=== PATIENT | female | born 1960 | race Caucasian/White ===

== ENCOUNTER → 2016-07-11 | Outpatient (CLI) | payer SELFPAY ==
--- NOTE | 2016-07-11 14:37 | RAD ---
EXAM DESCRIPTION: Hand,Left 3 Views CLINICAL HISTORY: PAIN IN LEFT HAND COMPARISON: Views of the opposite right hand TECHNIQUE: AP, LATERAL, AND OBLIQUE FINDINGS: Three-view left hand shows no fracture or dislocation. Moderately advanced degenerative changes at the base of the thumb at the carpal metacarpal articulation is present. No fracture or dislocation at the wrist is seen and no evidence of osteonecrosis of the lunate or scaphoid is noted. No radiopaque foreign body is seen. Typical findings of a destructive arthropathy is not apparent. IMPRESSION: 1. Degenerative changes, most significant at the base of the thumb at the carpal metacarpal articulation Electronically signed by: Bran Johnson MD 07/11/2016 2:37 PM CDT
--- NOTE | 2016-07-11 14:39 | RAD ---
EXAM DESCRIPTION: Hand,Right 3 Views CLINICAL HISTORY: PAIN IN RIGHT HAND COMPARISON: Concurrent left hand examination TECHNIQUE: AP, LATERAL, AND OBLIQUE FINDINGS: Three-view right hand shows no fracture or dislocation. Advanced degenerative changes at the base of the thumb at the carpal metacarpal articulation is present with very little degenerative disease elsewhere. The wrist appears intact without evidence of lunate or scaphoid osteonecrosis or dislocation. A destructive arthritis is not apparent. No radiopaque foreign body is noted. IMPRESSION: 1. Localized degenerative disease most prominently at the base of the thumb at the carpal metacarpal articulation. Electronically signed by: Bran Johnson MD 07/11/2016 2:39 PM CDT
== END | disposition home or self-care (01) ==
LOC: RAD 08:33
PROVIDERS: ATTEND Orthopaedic Surgery
DX: M79.642 Pain in left hand (principal)

== ENCOUNTER → 2018-01-20 | Outpatient (CLI) | payer BC | LOC: GMAHI 17:28 | PROVIDERS: ATTEND Nurse Practitioner Family | DX: N95.8 Other specified menopausal and perimenopausal disorders (principal) ==

== ENCOUNTER → 2018-01-26 | Outpatient (CLI) | payer BC | LOC: GMAM 17:02 | PROVIDERS: ATTEND Family Medicine | DX: R94.5 Abnormal results of liver function studies (principal) ==

== ENCOUNTER → 2018-03-04 | Outpatient (CLI) | payer BC ==
--- NOTE | 2018-03-05 09:01 | US ---
EXAM DESCRIPTION: Thyroid CLINICAL HISTORY: 57 years Female, evaluate for nodules COMPARISON: None. TECHNIQUE: Multiple transverse and longitudinal sonographic images of the thyroid gland were obtained. FINDINGS: The right thyroid lobe measures 4.2 x 1.6 x 1.5 cm and demonstrates a heterogenous appearance. No discrete nodules are noted. The left thyroid lobe measures 5.2 x 1.7 x 1.6 cm and demonstrates a 1.7 x 1.4 x 1.9 cm solid nodule with minimal internal vascularity in the lower portion. 0.7 x 0.7 x 1.9 cm solid nodule is noted in the midportion. The isthmus measures 3 mm in thickness. IMPRESSION: 2 nodules are identified in the mid and lower portions of the left thyroid lobe. The largest of these nodules measures 1.7 x 1.4 x 1.9 cm and is located in the lower portion of the left thyroid lobe. Electronically signed by: Debora Chadwick MD 03/05/2018 9:00 AM [employer]
== END ==
LOC: US 15:43
PROVIDERS: ATTEND Family Medicine
DX: E04.1 Nontoxic single thyroid nodule (principal)

== ENCOUNTER → 2018-08-26 | Outpatient (CLI) | payer BC | LOC: GMAM 10:09 | PROVIDERS: ATTEND Family Medicine | DX: E04.1 Nontoxic single thyroid nodule (principal) ==

== ENCOUNTER → 2018-08-28 | Outpatient (CLI) | payer BC ==
--- NOTE | 2018-08-28 08:53 | US ---
EXAM DESCRIPTION: Liver CLINICAL HISTORY: ELEVATED LFTs COMPARISON: Previous right upper quadrant sonogram January 15, 2013 TECHNIQUE: Right upper quadrant ultrasound FINDINGS: Pancreas: Visualized portions of the pancreas are unremarkable. Bowel gas obscures some areas. Aorta/inferior vena cava: No aortic aneurysm. Normal inferior vena cava. Liver: The liver is homogeneous in texture with increased echogenicity consistent with diffuse hepatic steatosis. Liver length of 17.6 cm is at the upper limits of normal. No focal liver lesion or intrahepatic bile duct dilatation. No liver surface irregularity. Normal appearance of the portal vein and hepatic veins. Gallbladder: Numerous shadowing stones in the gallbladder without gallbladder wall thickening or overdistention. Findings are consistent with cholelithiasis without acute cholecystitis. Sonographic Torres's sign was not reported. Common bile duct: Normal caliber measuring 6.0 mm. Right kidney: Renal length is 10.3 cm. Normal cortical echogenicity. Cortical thickness is normal. No hydronephrosis is seen. No renal mass or shadowing calculus. Previous study in January 2013 showed numerous stones in the gallbladder. The liver appeared hyperechoic at that time. IMPRESSION: Prominent liver with diffuse hepatic steatosis. Gallstones without other changes to suggest acute cholecystitis. Electronically signed by: Vitaly Pavon MD 08/28/2018 8:51 AM CDT
== END ==
LOC: US 08:07
PROVIDERS: ATTEND Family Medicine
DX: K76.0 Fatty (change of) liver, not elsewhere classified (principal); K80.20 Calculus of gallbladder without cholecystitis without obstruction

== ENCOUNTER → 2018-08-31 | Outpatient (CLI) | payer BC | LOC: GMAM 17:01 | PROVIDERS: ATTEND Family Medicine | DX: K76.0 Fatty (change of) liver, not elsewhere classified (principal) ==

== ENCOUNTER 2018-11-19 05:49 | Day surgery (SDC) | payer BC ==
[2018-11-19] MEDS ORDERED: LACTATED RINGERS 1,000 ML ONE (07:00)
[2018-11-19] MEDS ORDERED: LIDOCAINE 1% 10 ML VIAL INJ ONE (07:00)
[2018-11-19] MEDS ORDERED: KETOROLAC TROMETHAMINE INJ 30 MG/ML VIAL ONE (07:00)
[2018-11-19] MEDS ORDERED: ONDANSETRON INJ 4 MG/2 ML VIAL ONE ×2 (07:00→08:02)
[2018-11-19] MEDS ORDERED: PROPOFOL 200 MG/20 ML VIAL IV ONE (07:00)
[2018-11-19] MEDS ORDERED: DEXAMETHASONE INJ 10 MG/ML VIAL ONE (07:00)
[2018-11-19] MEDS ORDERED: SODIUM CHLORIDE 0.9% 100ML 100 ML IVPB ONE (07:00)
[2018-11-19] MEDS ORDERED: MIDAZOLAM INJ 2 MG/2 ML VIAL ONE (08:01)
[2018-11-19] MEDS ORDERED: fentaNYL CITRATE INJ 50 MCG/ML AMP ONE (08:01)
[2018-11-19] MEDS ORDERED: ROCURONIUM BROMIDE 10 MG/ML VIAL ONE (08:02)
[2018-11-19] MEDS ORDERED: SUGAMMADEX SODIUM 200 MG/2 ML VIAL IV ONE (08:03)
[2018-11-19] MEDS: ceFAZolin SODIUM 1 GM VIAL ONE (08:18)
[2018-11-19] MEDS: BUPIVACAINE 0.25% W/EPI 50 ML VIAL INJ ONE (08:42)
[2018-11-19] MEDS: HEPARIN SODIUM (PORCINE) 10,000 UNITS/ML VIAL ONE (09:00)
[2018-11-19] MEDS: LACTATED RINGERS 1,000 ML ONE (10:12)
[2018-11-19] MEDS: PROMETHAZINE HCL INJ 25 MG/ML VIAL ONE (10:38)
[2018-11-19] MEDS: SODIUM CHLORIDE 0.9% 100ML 100 ML IVPB ONE (10:38)
--- NOTE | 2018-11-19 10:54 | OP ---
DATE OF PROCEDURE: 11/19/18 PREOPERATIVE DIAGNOSIS: 1. Symptomatic cholelithiasis. 2. Fatty infiltration of the liver. POSTOPERATIVE DIAGNOSIS: 1. Symptomatic cholelithiasis. 2. Fatty infiltration of the liver. 3. Chronic cholecystitis. PROCEDURE: 1. Laparoscopic cholecystectomy with intraoperative cholangiography using fluoroscopy. 2. Wedge biopsy of the liver. SURGEON: Marcel Katz MD. INDICATION: The patient is a 58-year-old female who has had upper abdominal pain with radiation to the back, nausea and vomiting associated with fatty meals for 3 years. There is no history of hepatitis or jaundice. The patient was brought to the Surgical Suite today for cholecystectomy with cholangiography and wedge biopsy of the liver since her ultrasound was consistent with fatty infiltration of the liver. The risks, benefits and alternatives to the procedure were discussed with the patient in the office. FINDINGS: The gallbladder wall was minimally edematous and quite distended. There were multiple small stones. Intraoperative cholangiography revealed free flow into the duodenum with no filling defects or strictures noted. The liver appeared to have mild fatty infiltration. Biopsy is pending. DESCRIPTION OF PROCEDURE: After the patient was brought to the Surgical Suite and placed in supine position after she underwent general anesthesia, she was prepped and draped in the usual sterile manner. Surgical time-out was taken and the patient had received Ancef. The supraumbilical area was infiltrated with local anesthesia. A vertical incision was made. Dissection was carried down through the skin and subcutaneous tissue to the midline fascia. Traction sutures were placed on either side of the midline. A small incision was made in the midline fascia and the peritoneum was opened bluntly. Kristin trocar was introduced under direct vision into the abdominal cavity and fixed in place with the 20 mL balloon. CO2 was then insufflated until a pressure of 12 mmHg was reached and the abdomen was tympanitic in all four quadrants. When this was done, the laparoscope was introduced. The abdomen was inspected with the previously noted findings. The upper abdominal ports were placed under direct vision in the usual manner. The patient was placed in reverse Trendelenburg position and turned to the left side. The gallbladder was grasped, retracted anteriorly and laterally. The neck of the gallbladder was retracted laterally. The triangle of Calot was then explored using blunt dissection. The cystic duct and cystic artery were identified. The cystic duct was hemoclipped once proximally. The cystic artery was hemoclipped twice proximally. A small incision was made in the cystic duct. The cholangiogram catheter was introduced through a separate stab wound in the right upper quadrant, introduced into the cystic duct and clipped in place. Cholangiograms were then taken using fluoroscopy which revealed free flow into the duodenum with no filling defects or strictures noted. When this was done, the cystic duct catheter was removed. The cystic duct was hemoclipped three times distally and divided between the hemoclips. The gallbladder was then dissected free from the gallbladder bed of the liver using electrocautery. There was a small amount of oozing from the gallbladder bed of the liver which was controlled with electrocautery. The gallbladder was placed in an EndoCatch bag and supraumbilical port site in the usual manner under direct vision. When this was done, the gallbladder bed of the liver was inspected. Hemostasis was adequate. At this point, a wedge biopsy of the liver was performed with the sharp scissors on the medial aspect of the right lobe of the liver edge. This specimen was sent and then hemostasis was obtained with electrocautery with the cautery turned up to 50. When this was done, hemostasis was noted to be adequate again. The subhepatic space, subphrenic space, gallbladder bed of the liver and the nathan hepatis were all irrigated copiously with saline. Hemostasis was noted to be adequate. There was no bile leak identified in the nathan hepatis. The upper abdominal ports were removed under direct vision and good hemostasis was noted. At this point, the CO2, the laparoscope and the supraumbilical port were removed. The supraumbilical port site fascia was approximated with a [id number] suture of 0 Vicryl. Subcutaneous tissue was irrigated with saline. Skin edges were approximated with 4-0 Vicryl subcuticular sutures, benzoin and Steri-Strips. Sterile dressings were applied. The patient was awakened and taken to the Recovery Room in good and stable condition. Estimated blood loss was less than 50 mL. All sponge, needle and instrument counts were correct. #[id number] MTDD
[2018-11-19 12:57] VITALS: BP 135/72; TEMP 97.7; O2SAT 97
--- NOTE | 2018-11-19 18:11 | RAD ---
EXAM DESCRIPTION: Fluoroscopy Up to 1Hr: RF. CLINICAL HISTORY: 58 years Female intraoperative cholangiogram COMPARISON: None. IMPRESSION: 2 multiplanar, fluoroscopic images taken by the referring physician intraoperatively during intraoperative cholangiogram. No complicating process is demonstrated. Please refer to surgical report for specific details. Total fluoroscopic time was 8 seconds. Cumulative dose not recorded.. Permanent images of this procedure are stored in the patient's medical record. Electronically signed by: Vimal Camp MD 11/19/2018 6:10 PM CDT
== END 2018-11-19 12:45 | disposition home or self-care (01) ==
LOC: AMB 05:49
PROVIDERS: ATTEND Surgery
DX: K80.10 Calculus of gallbladder with chronic cholecystitis without obstruction (principal); K76.0 Fatty (change of) liver, not elsewhere classified; K21.9 Gastro-esophageal reflux disease without esophagitis; I10 Essential (primary) hypertension; M81.0 Age-related osteoporosis without current pathological fracture; F41.9 Anxiety disorder, unspecified; F32.9 Major depressive disorder, single episode, unspecified; R73.9 Hyperglycemia, unspecified; Z87.891 Personal history of nicotine dependence; Z88.8 Allergy status to other drugs, medicaments and biological substances; Z79.899 Other long term (current) drug therapy
CPT/HCPCS: 00790; 36415; 47001; 47563; 76000; 80053; 81001; 85025; J0690; J1100; J1644; J1885; J2250; J2405; J2550; J3010; J3490; J7050; J7120

== ENCOUNTER → 2019-09-08 | Outpatient (CLI) | payer BC | LOC: GMAM 11:02 | PROVIDERS: ATTEND Family Medicine | DX: E55.9 Vitamin D deficiency, unspecified (principal) ==

== ENCOUNTER → 2020-03-02 | Outpatient (CLI) | payer BC | LOC: GMAM 15:42 | PROVIDERS: ATTEND Family Medicine | DX: E04.1 Nontoxic single thyroid nodule (principal); E55.9 Vitamin D deficiency, unspecified; I10 Essential (primary) hypertension ==

== ENCOUNTER → 2020-03-06 | Outpatient (CLI) | payer BC ==
--- NOTE | 2020-03-06 12:26 | US ---
EXAM DESCRIPTION: Venous,Lower Extremity LT: ULTRASOUND. CLINICAL HISTORY: localized swelling, mass and lump, left lower limb COMPARISON: None Available. TECHNIQUE: Cox-scale and doppler sonographic evaluation of the deep venous system of the left lower extremity. FINDINGS: Doppler evaluation shows normal color flow and normal phasicity and augmentation of the left common femoral vein, left femoral vein, popliteal vein, left greater saphenous vein, junction with the CFV. Also normal color flow and normal phasicity and augmentation of the peroneal, and posterior tibial vein. The left lower extremity deep veins were completely compressible; normal occlusion with transducer pressure. Cox-scale survey showed no echogenic thrombus within these veins. IMPRESSION: 1. Duplex ultrasound evaluation of the left lower extremity deep venous system showing no evidence of thrombosis. Electronically signed by: Vimal Camp MD 03/06/2020 12:24 PM [employer]
== END ==
LOC: US 09:55
PROVIDERS: ATTEND Family Medicine
DX: R22.42 Localized swelling, mass and lump, left lower limb (principal)